=== PATIENT | female | born 1995 | race African-American/Black ===

== ENCOUNTER 2016-11-19 19:30 | Emergency (ER) | payer SELFPAY ==
[2016-11-19] MEDS ORDERED: SULFAMETHOXAZOLE/TRIMETHOPRIM 800-160 MG TABLET PO ONE (20:43)
--- NOTE | 2016-11-19 20:44 | ER Document Report ---
HPI - HPI Pain Level: 1 Context: Patient is a 21-year-old female presents emergency department complaining of visit within her nose that she is concerned is MRSA. 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 Otherwise she denies any fevers, chills. - REPRODUCTIVE Reproductive: DENIES: : - DERM Skin Color: Normal Past Medical History - Social History Smoking Status: Never Smoker Family History: Reviewed & Not Pertinent, DM, Hypertension Patient has suicidal ideation: No Patient has homicidal ideation: No Renal/ Medical History: Denies: Hx Peritoneal Dialysis - Immunizations Immunizations up to date: Yes Hx Diphtheria, Pertussis, Tetanus Vaccination: Yes - unknown Hx Pneumococcal Vaccination: 05/03/00 Vertical Provider Document - CONSTITUTIONAL Agree With Documented VS: Yes Exam Limitations: No Limitations General Appearance: WD/WN, No Apparent Distress - INFECTION CONTROL TRAVEL OUTSIDE OF THE [place] IN LAST 30 DAYS: No - HEENT HEENT: Atraumatic, Normocephalic, PERRLA. negative: Pharyngeal Exudate, Pharyngeal Tenderness, Pharyngeal Erythema, Tympanic Membrane Red, Tympanic Membrane Bulging Notes: pustulre noted within the left nare that is tender to palpation non draining - RESPIRATORY Respiratory: Breath Sounds Normal, No Respiratory Distress, Chest Non-Tender O2 Sat by Pulse Oximetry: 100 - CARDIOVASCULAR Cardiovascular: Regular Rate, Regular Rhythm, No Murmur - NEURO Level of Consciousness: Awake, Alert, Appropriate Motor/Sensory: No Motor Deficit, No Sensory Deficit - DERM Integumentary: Warm, Dry, No Rash Course - Re-evaluation Re-evalutation: 11/19/16 21:59 Patient is a 21 year old female who is HDS, NAD, and afebrile. Patient is requesting treatment for MRSA. Given her exposure history. Was sent home with Bactrim. - Vital Signs Vital signs: Temp Pulse Resp BP Pulse Ox 98.3 F 82 20 128/74 H 100 11/19/16 19:37 11/19/16 19:37 11/19/16 19:37 11/19/16 19:37 11/19/16 19:37 Discharge - Discharge Clinical Impression: Skin lesion Condition: Good Disposition: HOME, SELF-CARE Instructions: MRSA Cellulitis ([facility]) Prescriptions: Sulfamethoxazole/Trimethoprim [Bactrim Ds Tablet] 1 each PO BID #10 tablet
[2016-11-19 21:11] VITALS: BP 121/78
== END 2016-11-19 21:11 | disposition home or self-care (01) ==
LOC: ER 19:30
DX: L98.9 Disorder of the skin and subcutaneous tissue, unspecified (principal); Z20.818 Contact with and (suspected) exposure to other bacterial communicable diseases
CPT/HCPCS: 99283

== ENCOUNTER 2017-06-05 08:51 | Emergency (ER) | payer BC, MEDICAID ==
[2017-06-05] MEDS ORDERED: NORMAL SALINE 1000 ML 1,000 ML IV ONE (09:17)
[2017-06-05] MEDS ORDERED: ONDANSETRON HCL INJ/PF 4 MG/2 ML SDV IV ONE (09:17)
--- NOTE | 2017-06-05 09:58 | ER Document Report ---
ED GI/ - General Chief Complaint: Nausea/Vomiting/Diarrhea Stated Complaint: VOMITING Time Seen by Provider: 06/05/17 09:17 Information source: Patient Notes: 21-year-old female that presents today with the onset yesterday of nonbloody nonbilious vomiting and diarrhea 2 weeks with some "body aches" including her legs and lower back. She denies any dysuria or vaginal discharge. She states a mild nasal congestion without cough. She states some chills without overt fever. Patient does state some mild intermittent abdominal cramping with no focality. Patient denies any recent trips, travel, or antibiotics. TRAVEL OUTSIDE OF THE [place] IN LAST 30 DAYS: No - HPI Patient complains to provider of: Other - See above Onset: Other - See above Timing/Duration: Gradual Quality of pain: Achy Severity at maximum: Moderate Severity in ED: Mild Pain Level: 1 Context: Other - See above Location: Other - See above Vaginal bleeding (Compared to normal period): None Sexual history: Active Associated symptoms: Other - See above Exacerbated by: Denies Relieved by: Denies Similar symptoms previously: Yes Recently seen / treated by doctor: No - Related Data Allergies/Adverse Reactions: epinephrine [Epinephrine] Adverse Reaction (Verified 06/05/17 08:55) Syncope Past Medical History - General Information source: Patient - Social History Smoking Status: Unknown if Ever Smoked Cigarette use (# per day): No Chew tobacco use (# tins/day): No Smoking Education Provided: No Frequency of alcohol use: None Drug Abuse: None Family History: Reviewed & Not Pertinent, DM, Hypertension Renal/ Medical History: Denies: Hx Peritoneal Dialysis - Immunizations Immunizations up to date: Yes Hx Diphtheria, Pertussis, Tetanus Vaccination: Yes - unknown Hx Pneumococcal Vaccination: 05/03/00 Review of Systems - Review of Systems Constitutional: denies: Fever EENT: denies: Eye discharge, Nose discharge Cardiovascular: denies: Chest pain, Palpitations Respiratory: denies: Short of breath Gastrointestinal: Abdominal pain, Diarrhea, Vomiting Genitourinary: denies: Dysuria Musculoskeletal: denies: Leg swelling Skin: Other - no hives. denies: Rash Neurological/Psychological: Other - no slurred speech -: Yes All other systems reviewed and negative Physical Exam - Vital signs Vitals: Temp Pulse Resp BP Pulse Ox 98.3 F 92 16 119/80 99 02/03/18 09:08 06/05/17 09:08 06/05/17 09:08 06/05/17 09:08 06/05/17 09:08 Notes: Reviewed vital signs and nursing note as charted by RN. CONSTITUTIONAL: Alert and oriented and responds appropriately to questions. Well -appearing; well-nourished HEAD: Normocephalic; atraumatic EYES: PERRL; Sclerae non-icteric ENT: Normal nose; mild bilateral nasal rhinorrhea; moist mucous membranes; pharynx without lesions noted NECK: Supple without meningismus; non-tender CARD: Regular rate and rhythm; no murmurs RESP: Normal chest excursion without splinting or tachypnea; breath sounds clear and equal bilaterally ABD/GI: Normal bowel sounds; non-distended; soft, non-tender currently to deep palpation of all 4 quadrants of the abdomen BACK: The back appears normal and is non-tender to palpation; no CVA tenderness EXT: Normal ROM in all joints; non-tender to palpation; no edema SKIN: No acute lesions noted NEURO: Moves all extremities equally; Motor and sensory function intact PSYCH: The patient's mood and manner are appropriate. Grooming and personal hygiene are appropriate. Course - Re-evaluation Re-evalutation: 06/05/17 10:00 Given the history and physical examination, we will order basic labs, electrolytes, urinalysis and test, as well as an influenza test. I will provide fluids and Zofran. I do believe the risk of an acute intra- abdominal infection to be unlikely at this time given the abdominal exam as recorded above. We will reassess. 06/05/17 11:02 Labs as recorded. Influenza is negative. Patient still has no tenderness to repeat abdominal examination. Urinalysis shows no infection. is negative. Normal liver panel and lipase. White count is normal. Patient has not vomited here at this facility. She is currently playing on her phone. Given the above history and physical, laboratory work, vital signs stable, afebrile, repeat abdominal exams, I do not believe further imaging or laboratory testing is necessary at this moment. Patient will be discharged home with strict return precautions and follow-up with the primary physician. - Vital Signs Vital signs: Temp Pulse Resp BP Pulse Ox 98.3 F 92 16 119/80 99 06/05/17 09:08 06/05/17 09:08 06/05/17 09:08 06/05/17 09:08 06/05/17 09:08 - Laboratory Result Diagrams: 06/05/17 10:04 06/05/17 10:04 Laboratory results interpreted by me: 06/05/17 10:04 Urine Ascorbic Acid 40 H Discharge - Discharge Clinical Impression: Vomiting and diarrhea, Muscle cramps, Abdominal discomfort Condition: Good Disposition: HOME, SELF-CARE Additional Instructions: Come back immediately with any persistent vomiting or diarrhea, return or change in location of pain to the abdomen, or any other acute problems. Please follow-up with your primary care physician and please attempt to stay well- hydrated. Prescriptions: Ondansetron HCl [Zofran 4 mg Tablet] 1 - 2 tab PO Q4H PRN #10 tablet PRN Reason: Referrals: MIKE MACHADO MD [Primary Care Provider] - Follow up as needed
[2017-06-05 10:35] LABS: ABSOLUTE EOSINOPHILS # (AUTO) 0.1 10^3/uL (0.0-0.6); ABSOLUTE LYMPHOCYTES (AUTO) 1.3 10^3/uL (0.5-4.7); ABSOLUTE MONOCYTES (AUTO) 0.4 10^3/uL (0.1-1.4); ABSOLUTE NEUT (AUTO) 2.4 10^3/uL (1.7-8.2); BASOPHILS % (AUTO) 0.4 % (0-2); EOSINOPHILS % (AUTO) 1.8 % (0-6); HEMATOCRIT 41.1 % (36.0-47.0); HEMOGLOBIN 13.5 g/dL (12.0-15.5); LYMPHOCYTES % (AUTO) 31.2 % (13-45); MEAN CORPUSCULAR HEMOGLOBIN 28.1 pg (27.0-33.4); MEAN CORPUSCULAR HGB CONC 32.8 g/dL (32.0-36.0); MEAN CORPUSCULAR VOLUME 86 fl (80-97); MONOCYTES % (AUTO) 8.6 % (3-13); PLATELET COUNT 203 10^3/uL (150-450); RED BLOOD COUNT 4.81 10^6/uL (3.72-5.28); RED CELL DISTRIBUTION WIDTH 13.7 % (11.5-14.0); TOTAL CELLS COUNTED % (AUTO) 100 %; WHITE BLOOD COUNT 4.2 10^3/uL (4.0-10.5)
[2017-06-05 10:41] LABS: APPEARANCE,URINE CLEAR; BILIRUBIN,URINE NEGATIVE (NEGATIVE); COLOR,URINE YELLOW; GLUCOSE, URINE NEGATIVE (NEGATIVE); KETONES,URINE NEGATIVE (NEGATIVE); LEUKOCYTE ESTERASE,URINE NEGATIVE (NEGATIVE); NITRITE,URINE NEGATIVE (NEGATIVE); PROTEIN,URINE NEGATIVE (NEGATIVE); UROBILINOGEN,URINE NEGATIVE mg/dL (<2.0)
[2017-06-05 10:49] LABS: ALANINE AMINOTRANSFERASE 26 U/L (9-52); ALBUMIN 4.5 g/dL (3.5-5.0); ALKALINE PHOSPHATASE 66 U/L (38-126); ANION GAP 12 (5-19); ASPARTATE AMINO TRANSFERASE 19 U/L (14-36); BILIRUBIN,TOTAL 0.6 mg/dL (0.2-1.3); BLOOD UREA NITROGEN 8 mg/dL (7-20); CALCIUM 9.5 mg/dL (8.4-10.2); CARBON DIOXIDE 25 mmol/L (22-30); CHLORIDE 107 mmol/L (98-107); GLUCOSE 83 mg/dL (75-110); POTASSIUM 3.8 mmol/L (3.6-5.0); SODIUM 144.4 mmol/L (137-145); TOTAL PROTEIN 7.2 g/dL (6.3-8.2)
[2017-06-05 10:58] LABS: A TYPE INFLUENZA AG NEGATIVE (NEGATIVE); B INFLUENZA AG NEGATIVE (NEGATIVE)
[2017-06-05 11:19] VITALS: BP 114/68
== END 2017-06-05 11:19 | disposition home or self-care (01) ==
LOC: ER 08:51
DX: R11.2 Nausea with vomiting, unspecified (principal); R19.7 Diarrhea, unspecified; M79.1 Myalgia; R10.9 Unspecified abdominal pain; R25.2 Cramp and spasm
CPT/HCPCS: 99283; 96361; 96374; 36415; 85025; 81025; 80053; 81001; 87804; J2405; J7030

== ENCOUNTER 2017-06-16 20:27 | Emergency (ER) | payer BC ==
[2017-06-16 20:56] VITALS: BP 115/84
[2017-06-16] MEDS ORDERED: IBUPROFEN 600 MG TABLET PO ONE (22:47)
--- NOTE | 2017-06-16 22:49 | ER Document Report ---
ED General - General Chief Complaint: Cough Stated Complaint: STOMACH PAIN/COUGH Time Seen by Provider: 06/16/17 22:21 Mode of Arrival: Ambulatory Information source: Patient Notes: 21-year-old female presents with 1 week duration of cough body aches fevers and chills. Patient was fevers and chills actually resolved few days prior. She denies any productivity to the cough. Her son now has similar complaints TRAVEL OUTSIDE OF THE [place] IN LAST 30 DAYS: No - HPI Onset: Last week Onset/Duration: Persistent Quality of pain: Achy - Abdominal muscles hurt from coughing Severity: Mild Pain Level: 1 Associated symptoms: Body/muscle aches, Nonproductive cough, Fever Exacerbated by: Coughing Relieved by: Denies Similar symptoms previously: No Recently seen / treated by doctor: No - Related Data Allergies/Adverse Reactions: epinephrine [Epinephrine] Adverse Reaction (Verified 06/05/17 08:55) Syncope Past Medical History - Social History Smoking Status: Never Smoker Cigarette use (# per day): No Chew tobacco use (# tins/day): No Smoking Education Provided: No Family History: Reviewed & Not Pertinent, DM, Hypertension Patient has suicidal ideation: No Patient has homicidal ideation: No Renal/ Medical History: Denies: Hx Peritoneal Dialysis - Immunizations Immunizations up to date: Yes Hx Diphtheria, Pertussis, Tetanus Vaccination: Yes - unknown Hx Pneumococcal Vaccination: 05/03/00 Review of Systems - Review of Systems Notes: REVIEW OF SYSTEMS: CONSTITUTIONAL : Admits to previous fever EENT: Denies eye, ear, throat, or mouth pain or symptoms. Denies nasal or sinus congestion or discharge. Denies throat, tongue, or mouth swelling or difficulty swallowing. CARDIOVASCULAR: Denies chest pain. Denies palpitations or racing or irregular heart beat. Denies ankle edema. RESPIRATORY: Admits to nonproductive cough GASTROINTESTINAL: Denies abdominal pain or distention. Denies nausea, vomiting , or diarrhea. Denies blood in vomitus, stools, or per rectum. Denies black, tarry stools. Denies constipation. GENITOURINARY: Denies difficulty urinating, painful urination, burning, frequency, blood in urine, or discharge. FEMALE GENITOURINARY: Denies vaginal bleeding, heavy or abnormal periods, irregular periods. Denies vaginal discharge or odor. MUSCULOSKELETAL: Admits to abdominal pain SKIN: Denies rash, lesions or sores. HEMATOLOGIC : Denies easy bruising or bleeding. LYMPHATIC: Denies swollen, enlarged glands. NEUROLOGICAL: Denies confusion or altered mental status. Denies passing out or loss of consciousness. Denies dizziness or lightheadedness. Denies headache. Denies weakness or paralysis or loss of use of either side. Denies problems with gait or speech. Denies sensory loss, numbness, or tingling. Denies seizures. PSYCHIATRIC: Denies anxiety or stress. Denies depression, suicidal ideation, or homicidal ideation. ALL OTHER SYSTEMS REVIEWED AND NEGATIVE. PHYSICAL EXAMINATION: GENERAL: Well-appearing, well-nourished and in no acute distress. HEAD: Atraumatic, normocephalic. EYES: Pupils equal round and reactive to light, extraocular movements intact, conjunctiva are normal. ENT: Nares patent, oropharynx clear without exudates. Moist mucous membranes. NECK: Normal range of motion, supple without lymphadenopathy LUNGS: Breath sounds clear to auscultation bilaterally and equal. No wheezes rales or rhonchi. HEART: Regular rate and rhythm without murmurs ABDOMEN: Soft, nontender, nondistended abdomen. No guarding, no rebound. No masses appreciated. Female : deferred Musculoskeletal: Normal range of motion, no pitting or edema. No cyanosis. NEUROLOGICAL: Cranial nerves grossly intact. Normal speech, normal gait. Normal sensory, motor exams PSYCH: Normal mood, normal affect. SKIN: Warm, Dry, normal turgor, no rashes or lesions noted. Dictation was performed using [employer] voice recognition software Physical Exam - Vital signs Vitals: Temp Pulse Resp BP Pulse Ox 99.1 F 81 16 115/84 97 06/16/17 20:47 06/16/17 20:47 06/16/17 20:47 06/16/17 20:47 06/16/17 20:47 Course - Re-evaluation Re-evalutation: 06/16/17 22:48 Patient's examination is quite benign, she overall looks quite well, x-rays pending given the length of the cough but given that child has had similar complaints and believe this is more of a viral nature patient does not have any flulike presentation at this time 06/16/17 23:17 X-ray noted no acute abnormality patient looks well vital signs are stable she has no DVT or PE risk factors she is noted to have upper respiratory infection and is otherwise well-appearing After performing a Medical Screening Examination, I estimate there is LOW risk for ACUTE CORONARY SYNDROME, PULMONARY EMBOLI, RESPIRATORY FAILURE, SEPSIS OR MENINGITIS, thus I consider the discharge disposition reasonable. I have reevaluated this patient multiple times and no significant life threatening changes are noted. The patient and I have discussed the diagnosis and risks, and we agree with discharging home with close follow-up. We also discussed returning to the Emergency Department immediately if new or worsening symptoms occur. We have discussed the symptoms which are most concerning (e.g., changing or worsening pain, trouble swallowing or breathing, neck stiffness, fever) that necessitate immediate return. - Vital Signs Vital signs: Temp Pulse Resp BP Pulse Ox 99.1 F 81 16 115/84 97 06/16/17 20:47 06/16/17 20:47 06/16/17 20:47 06/16/17 20:47 06/16/17 20:47 - Diagnostic Test Radiology reviewed: Image reviewed, Reports reviewed - No acute abnormality Discharge - Discharge Clinical Impression: Respiratory infection, Abdominal wall pain Condition: Stable Disposition: HOME, SELF-CARE Instructions: Upper Respiratory Illness ([facility]) Additional Instructions: Follow up with your physician tomorrow for further care or return to the ED IMMEDIATELY if symptoms worsen or new concerns occur. If you cannot afford to follow up with your primary care physician a list of low cost clinics have been provided at the end of your discharge papers as well. Referrals: MIKE MACHADO MD [Primary Care Provider] - Follow up as needed
--- NOTE | 2017-06-16 23:22 | RADIOLOGY REPORT (SQ) ---
EXAM DESCRIPTION: CHEST PA/LAT CLINICAL HISTORY: 21 years, Female, cough COMPARISON: April 18, 2014 FINDINGS: Normal lung volume, clear parenchyma, normal cardiac silhouette, and intact bony thorax. IMPRESSION: No acute cardiopulmonary findings.
== END 2017-06-16 23:48 | disposition home or self-care (01) ==
LOC: ER 20:27
DX: J98.8 Other specified respiratory disorders (principal); R10.9 Unspecified abdominal pain; R05 Cough; M79.1 Myalgia
CPT/HCPCS: 71046; 99283

== ENCOUNTER 2018-06-03 09:55 | Emergency (ER) | payer BC, MEDICAID ==
--- NOTE | 2018-06-03 10:40 | ER Document Report ---
ED Medical Screen (RME) - General Chief Complaint: Nausea/Vomiting/Diarrhea Stated Complaint: VOMITING Time Seen by Provider: 06/03/18 10:38 Primary Care Provider: MIKE MACHADO MD [Primary Care Provider] - Follow up as needed Notes: Patient started having diarrhea Wednesday. She started vomiting this morning. Has vomited about 5 times. Has some pain in the mid epigastric region. No fevers. Not sure when her last menstrual cycle took place, but she is on control. No abdominal surgeries. On no prescription medications. TRAVEL OUTSIDE OF THE [place] IN LAST 30 DAYS: No - Related Data Allergies/Adverse Reactions: epinephrine [Epinephrine] Adverse Reaction (Verified 06/03/18 09:57) Syncope Past Medical History - Social History Chew tobacco use (# tins/day): No Frequency of alcohol use: None Drug Abuse: None Renal/ Medical History: Denies: Hx Peritoneal Dialysis - Immunizations Immunizations up to date: Yes Hx Diphtheria, Pertussis, Tetanus Vaccination: Yes - unknown Physical Exam - Vital signs Vitals: Temp Pulse Resp BP Pulse Ox 99.0 F 102 H 16 124/69 99 06/03/18 10:03 06/03/18 10:03 06/03/18 10:03 06/03/18 10:03 06/03/18 10:03 Course - Vital Signs Vital signs: Temp Pulse Resp BP Pulse Ox 99.0 F 102 H 16 124/69 99 06/03/18 10:03 06/03/18 10:03 06/03/18 10:03 06/03/18 10:03 06/03/18 10:03 Doctor's Discharge - Discharge Referrals: MIKE MACHADO MD [Primary Care Provider] - Follow up as needed
[2018-06-03] MEDS ORDERED: NORMAL SALINE 1000 ML 1,000 ML IV ONE (10:41)
[2018-06-03] MEDS ORDERED: ONDANSETRON HCL INJ/PF 4 MG/2 ML SDV IV ONE (10:42)
[2018-06-03 11:23] LABS: ABSOLUTE LYMPHOCYTES (AUTO) 0.6 10^3/uL (0.5-4.7); ABSOLUTE MONOCYTES (AUTO) 0.3 10^3/uL (0.1-1.4); ABSOLUTE NEUT (AUTO) 9.2 10^3/uL (1.7-8.2); BASOPHILS % (AUTO) 0.1 % (0-2); EOSINOPHILS % (AUTO) 0.4 % (0-6); HEMATOCRIT 44.6 % (36.0-47.0); HEMOGLOBIN 14.9 g/dL (12.0-15.5); LYMPHOCYTES % (AUTO) 6.2 % (13-45); MEAN CORPUSCULAR HEMOGLOBIN 28.9 pg (27.0-33.4); MEAN CORPUSCULAR HGB CONC 33.4 g/dL (32.0-36.0); MEAN CORPUSCULAR VOLUME 87 fl (80-97); MONOCYTES % (AUTO) 2.7 % (3-13); PLATELET COUNT 199 10^3/uL (150-450); RED BLOOD COUNT 5.14 10^6/uL (3.72-5.28); RED CELL DISTRIBUTION WIDTH 13.3 % (11.5-14.0); SEGMENTED NEUTROPHILS % (AUTO) 90.6 % (42-78); TOTAL CELLS COUNTED % (AUTO) 100 %; WHITE BLOOD COUNT 10.2 10^3/uL (4.0-10.5)
[2018-06-03 11:37] LABS: ALANINE AMINOTRANSFERASE 16 U/L (9-52); ALBUMIN 5.3 g/dL (3.5-5.0); ALKALINE PHOSPHATASE 79 U/L (38-126); ANION GAP 11 (5-19); ASPARTATE AMINO TRANSFERASE 42 U/L (14-36); BILIRUBIN,DIRECT 0.4 mg/dL (0.0-0.4); BILIRUBIN,TOTAL 0.9 mg/dL (0.2-1.3); BLOOD UREA NITROGEN 12 mg/dL (7-20); CALCIUM 9.5 mg/dL (8.4-10.2); CARBON DIOXIDE 27 mmol/L (22-30); CHLORIDE 106 mmol/L (98-107); GLUCOSE 99 mg/dL (75-110); LIPASE 335.2 U/L (23-300); POTASSIUM 4.3 mmol/L (3.6-5.0); SODIUM 144.1 mmol/L (137-145); TOTAL PROTEIN 8.9 g/dL (6.3-8.2)
[2018-06-03 11:52] LABS: APPEARANCE,URINE CLOUDY; BILIRUBIN,URINE NEGATIVE (NEGATIVE); COLOR,URINE YELLOW; GLUCOSE, URINE NEGATIVE (NEGATIVE); KETONES,URINE NEGATIVE (NEGATIVE); LEUKOCYTE ESTERASE,URINE NEGATIVE (NEGATIVE); NITRITE,URINE NEGATIVE (NEGATIVE); PROTEIN,URINE NEGATIVE (NEGATIVE); URINE SPECIFIC GRAVITY 1.024; UROBILINOGEN,URINE NEGATIVE mg/dL (<2.0)
--- NOTE | 2018-06-03 11:54 | ER Document Report ---
ED GI/ - General Chief Complaint: Nausea/Vomiting/Diarrhea Stated Complaint: VOMITING Time Seen by Provider: 06/03/18 10:38 Primary Care Provider: MIKE MACHADO MD [ACTIVE STAFF] - Follow up as needed Information source: Patient Notes: 22-year-old female with no past medical history presents today with 2 days of some intermittent nausea, vomiting, and diarrhea. No blood in the vomit or diarrhea. Son has similar symptomatology. No fevers. Patient denies to me any abdominal pain or dysuria. Patient is on control. She is unsure when her last menstrual period took place. No lower pelvic pain or vaginal discharge. No recent trips, travel, or antibiotic usage. TRAVEL OUTSIDE OF THE [place] IN LAST 30 DAYS: No - HPI Patient complains to provider of: Other - See above Onset: Other - See above Quality of pain: Other - See above Severity at maximum: Moderate Severity in ED: Mild Pain Level: Denies Location: Other - See above Vaginal bleeding (Compared to normal period): None Associated symptoms: Other - See above Exacerbated by: Denies Relieved by: Denies Similar symptoms previously: Yes Recently seen / treated by doctor: No - Related Data Allergies/Adverse Reactions: epinephrine [Epinephrine] Adverse Reaction (Verified 06/03/18 09:57) Syncope Past Medical History - Social History Smoking Status: Never Smoker Chew tobacco use (# tins/day): No Frequency of alcohol use: None Drug Abuse: None Family History: Reviewed & Not Pertinent, DM, Hypertension Patient has suicidal ideation: No Patient has homicidal ideation: No Renal/ Medical History: Denies: Hx Peritoneal Dialysis - Immunizations Immunizations up to date: Yes Hx Diphtheria, Pertussis, Tetanus Vaccination: Yes - unknown Hx Pneumococcal Vaccination: 05/03/00 Review of Systems - Review of Systems Constitutional: denies: Fever EENT: denies: Eye discharge, Nose discharge Cardiovascular: denies: Chest pain, Palpitations Respiratory: denies: Short of breath Gastrointestinal: Diarrhea, Vomiting Genitourinary: denies: Dysuria Musculoskeletal: denies: Leg swelling Skin: Other - no hives. denies: Rash Neurological/Psychological: Other - no slurred speech -: Yes All other systems reviewed and negative Physical Exam - Vital signs Vitals: Temp Pulse Resp BP Pulse Ox 99.0 F 102 H 16 124/69 99 06/03/18 10:06/03/18 10:06/03/18 10:06/03/18 10:06/03/18 10:03 Notes: Reviewed vital signs and nursing note as charted by RN. CONSTITUTIONAL: Alert and oriented and responds appropriately to questions. Well-appearing; well-nourished HEAD: Normocephalic; atraumatic EYES: Sclerae non-icteric ENT: Normal nose; no rhinorrhea; moist mucous membranes; pharynx without lesions noted NECK: Supple without meningismus; non-tender; no cervical lymphadenopathy, no masses CARD: Regular rate and rhythm; no murmurs; symmetric distal pulses RESP: Normal chest excursion without splinting or tachypnea; breath sounds clear and equal bilaterally; no wheezes, no rhonchi, no rales ABD/GI: Normal bowel sounds; non-distended; soft, non-tender to deep palpation of all 4 quadrants of the abdomen; no palpable organomegaly or masses BACK: The back appears normal and is non-tender to palpation EXT: Normal ROM in all joints; non-tender to palpation; no edema SKIN: No acute lesions noted NEURO: CN 2-12 intact; 5/5 bilateral upper and lower extremity strength with sensation intact to light touch PSYCH: The patient's mood and manner are appropriate. Grooming and personal hygiene are appropriate. Course - Re-evaluation Re-evalutation: 06/03/18 11:53 Given the above history and physical examination I have a very low pretest probability for acute intra-abdominal pathology. Vital signs are stable. Son with similar symptomatology. If the labs are unremarkable and the patient is able to tolerate fluids, patient will be discharged home with strict return precautions and follow-up with the primary care physician with a prescription for Zofran. 06/03/18 12:38 Labs as recorded. Lipase is slightly elevated. No tenderness again on repeat examination of all 4 quadrants of the abdomen. Patient has passed the p.o. challenge. Patient will be discharged home with strict return precautions and follow-up with the primary care provider. - Vital Signs Vital signs: Temp Pulse Resp BP Pulse Ox 98.4 F 101 H 16 109/65 99 06/03/18 12:28 06/03/18 12:28 06/03/18 10:03 06/03/18 12:28 06/03/18 12:28 - Laboratory Result Diagrams: 06/03/18 11:06 06/03/18 11:06 Laboratory results interpreted by me: 06/03/18 06/03/18 11:06 11:06 Seg Neutrophils % 90.6 H Lymphocytes % 6.2 L Monocytes % 2.7 L Absolute Neutrophils 9.2 H AST 42 H Total Protein 8.9 H Albumin 5.3 H Lipase 335.2 H Discharge - Discharge Clinical Impression: Nausea vomiting and diarrhea Condition: Good Disposition: HOME, SELF-CARE Additional Instructions: Come back immediately for any pain, fevers, any blood in the vomit or diarrhea, lightheadedness or dizziness, increased vomiting or diarrhea, or any other acute problems. Please follow-up with the primary care physician as we have discussed. Prescriptions: Ondansetron [Zofran Odt 4 mg Tablet] 1 tab PO Q6H #15 [email or web address] Referrals: MIKE MACHADO MD [ACTIVE STAFF] - Follow up as needed
[2018-06-03 12:32] VITALS: BP 109/65
== END 2018-06-03 12:32 | disposition home or self-care (01) ==
LOC: ER 09:55
DX: R11.2 Nausea with vomiting, unspecified (principal); R19.7 Diarrhea, unspecified
CPT/HCPCS: 99284; 96361; 96374; 36415; 83690; 84703; 85025; 80053; 81001; J2405; J7030

== ENCOUNTER 2018-09-19 07:15 | Emergency (ER) | payer BC, MEDICAID ==
[2018-09-19 08:09] LABS: APPEARANCE,URINE CLOUDY; BILIRUBIN,URINE NEGATIVE (NEGATIVE); COLOR,URINE YELLOW; GLUCOSE, URINE NEGATIVE (NEGATIVE); KETONES,URINE TRACE mg/dL (NEGATIVE); LEUKOCYTE ESTERASE,URINE NEGATIVE (NEGATIVE); NITRITE,URINE NEGATIVE (NEGATIVE); PROTEIN,URINE NEGATIVE (NEGATIVE); URINE SPECIFIC GRAVITY 1.027
[2018-09-19] MEDS ORDERED: NORMAL SALINE 1000 ML 1,000 ML IV ONE (08:57)
[2018-09-19 08:58] LABS: ABSOLUTE EOSINOPHILS # (AUTO) 0.1 10^3/uL (0.0-0.6); ABSOLUTE LYMPHOCYTES (AUTO) 1.5 10^3/uL (0.5-4.7); ABSOLUTE MONOCYTES (AUTO) 0.2 10^3/uL (0.1-1.4); ABSOLUTE NEUT (AUTO) 2.1 10^3/uL (1.7-8.2); BASOPHILS % (AUTO) 0.9 % (0-2); EOSINOPHILS % (AUTO) 2.2 % (0-6); HEMATOCRIT 39.6 % (36.0-47.0); HEMOGLOBIN 12.9 g/dL (12.0-15.5); LYMPHOCYTES % (AUTO) 38.2 % (13-45); MEAN CORPUSCULAR HEMOGLOBIN 28.1 pg (27.0-33.4); MEAN CORPUSCULAR HGB CONC 32.7 g/dL (32.0-36.0); MEAN CORPUSCULAR VOLUME 86 fl (80-97); MONOCYTES % (AUTO) 5.8 % (3-13); PLATELET COUNT 231 10^3/uL (150-450); RED BLOOD COUNT 4.61 10^6/uL (3.72-5.28); SEGMENTED NEUTROPHILS % (AUTO) 52.9 % (42-78); TOTAL CELLS COUNTED % (AUTO) 100 %
[2018-09-19] MEDS ORDERED: ONDANSETRON HCL INJ/PF 4 MG/2 ML SDV IV ONE (08:58)
--- NOTE | 2018-09-19 09:02 | ER Document Report ---
ED General - General Chief Complaint: Nausea/Vomiting/Diarrhea Stated Complaint: VOMITING Time Seen by Provider: 09/19/18 08:01 Notes: 22-year-old healthy female presents to the emergency department with chief complaint of vomiting, inability to hold any food down, nausea, and diarrhea. She states she has had nausea for 2 days and started having vomiting and diarrhea since today. She has had one episode of each. She has abdominal pain located in the left upper quadrant that is crampy in nature. She denies any fevers, chills, weakness, dizziness or lightheadedness, headache. Denies any urinary symptom TRAVEL OUTSIDE OF THE [place] IN LAST 30 DAYS: No - Related Data Allergies/Adverse Reactions: epinephrine [Epinephrine] Adverse Reaction (Verified 06/03/18 09:57) Syncope Past Medical History - Social History Smoking Status: Never Smoker Family History: Reviewed & Not Pertinent, DM, Hypertension Renal/ Medical History: Denies: Hx Peritoneal Dialysis - Immunizations Immunizations up to date: Yes Hx Diphtheria, Pertussis, Tetanus Vaccination: Yes - unknown Hx Pneumococcal Vaccination: 05/03/00 Review of Systems - Review of Systems Constitutional: See HPI EENT: No symptoms reported Cardiovascular: See HPI Respiratory: See HPI Gastrointestinal: See HPI Genitourinary: See HPI Female Genitourinary: No symptoms reported Musculoskeletal: No symptoms reported Skin: No symptoms reported Hematologic/Lymphatic: No symptoms reported Neurological/Psychological: See HPI Physical Exam - Vital signs Vitals: Temp Pulse Resp BP Pulse Ox 98.2 F 83 16 104/61 99 09/19/18 07:22 09/19/18 07:22 09/19/18 07:22 09/19/18 07:22 09/19/18 07:22 - Notes Notes: PHYSICAL EXAMINATION: Reviewed vital signs and charting by RN GENERAL: Well-appearing, well-nourished and in no acute distress. HEAD: Atraumatic, normocephalic. EYES: Pupils are 3 mm and equal/round, extraocular movements intact, sclera anicteric, conjunctiva are normal. ENT: Nares patent bilaterally, oropharynx clear without exudates or palatal petechia. Moist mucous membranes. No tonsil hypertrophy. NECK: Normal range of motion, supple without lymphadenopathy. LUNGS: Breath sounds present, equal, and clear to auscultation bilaterally. No wheezes, rales, or rhonchi. HEART: Regular rate and rhythm without murmurs, rubs, or gallops. 2+ peripheral pulses. Normal capillary refill. ABDOMEN: Soft, left upper quadrant tenderness to palpation, nondistended. Normoactive bowel sounds. No guarding, no rebound. No masses appreciated. BACK: Normal contour, no midline tenderness. Rectal exam deferred. PELVC: Deferred. EXTREMITIES: Normal range of motion, no pitting or edema. No cyanosis. NEUROLOGICAL: No focal neurological deficits. Moves all extremities spontaneously and on command. SKIN: Warm, dry, normal turgor, no rashes or lesions noted. Course - Re-evaluation Re-evalutation: 09/19/18 09:01 Well-appearing with moist mucous membranes. We will give her IV fluids and Zofr an. Will then fluid challenge her. I have a very low pretest probability for any serious intra-abdominal pathology. 09/19/18 10:16 Patient states she feels better after IV Zofran and IV fluids. She is able to tolerate p.o. fluids. Because she only had one episode of vomiting and her labs are all within normal limits at this time and she is stable for discharge. - Vital Signs Vital signs: Temp Pulse Resp BP Pulse Ox 98.2 F 83 16 104/61 99 09/19/18 07:22 09/19/18 07:22 09/19/18 07:22 09/19/18 07:22 09/19/18 07:22 - Laboratory Result Diagrams: 09/19/18 07:56 09/19/18 07:56 Laboratory results interpreted by me: 09/19/18 07:40 Urine Ketones TRACE H Urine Urobilinogen 2.0 H Urine Ascorbic Acid 40 H Discharge - Discharge Clinical Impression: Nausea & vomiting Qualifiers: Vomiting type: unspecified Vomiting Intractability: non-intractable Qualified Code(s): R11.2 - Nausea with vomiting, unspecified Diarrhea Qualifiers: Diarrhea type: unspecified type Qualified Code(s): R19.7 - Diarrhea, unspecified Condition: Good Disposition: HOME, SELF-CARE Instructions: Vomiting ([facility]) Additional Instructions: You have been seen in the Emergency Department (ED) today for nausea and vomiting. Your work up today has not shown a clear cause for your symptoms. You have been prescribed Zofran; please use as prescribed as needed for your nausea. Follow up with your doctor as soon as possible regarding today's emergent visit and your symptoms of nausea. Return to the Emergency Department (ED) if you develop abdominal pain, bloody vomiting, bloody diarrhea, if you are unable to tolerate fluids due to vomiting, or if you develop other symptoms that concern you. Forms: Return to Work, Treatment of Relative/Child
[2018-09-19 09:14] LABS: ALANINE AMINOTRANSFERASE 24 U/L (9-52); ALBUMIN 3.8 g/dL (3.5-5.0); ALKALINE PHOSPHATASE 64 U/L (38-126); ANION GAP 8 (5-19); ASPARTATE AMINO TRANSFERASE 19 U/L (14-36); BILIRUBIN,DIRECT 0.2 mg/dL (0.0-0.4); BILIRUBIN,TOTAL 0.4 mg/dL (0.2-1.3); BLOOD UREA NITROGEN 8 mg/dL (7-20); CALCIUM 9.6 mg/dL (8.4-10.2); CARBON DIOXIDE 25 mmol/L (22-30); CHLORIDE 106 mmol/L (98-107); GLUCOSE 93 mg/dL (75-110); LIPASE 88.1 U/L (23-300); POTASSIUM 4.1 mmol/L (3.6-5.0); SODIUM 139.2 mmol/L (137-145); TOTAL PROTEIN 7.1 g/dL (6.3-8.2)
[2018-09-19] MEDS ORDERED: ONDANSETRON ODT 4 MG TAB (6 TAB/ER DISP) PO PRN (09:22)
[2018-09-19 10:50] VITALS: BP 99/56
== END 2018-09-19 10:55 | disposition home or self-care (01) ==
LOC: ER 07:15
DX: R11.2 Nausea with vomiting, unspecified (principal); R19.7 Diarrhea, unspecified; R10.12 Left upper quadrant pain
CPT/HCPCS: 99284; 96361; 96374; 36415; 83690; 85025; 81025; 80053; 81001; J2405; J7030

== ENCOUNTER 2019-01-13 07:52 | Emergency (ER) | payer BC ==
[2019-01-13] MEDS ORDERED: NORMAL SALINE 1000 ML 1,000 ML IV ONE (08:16)
[2019-01-13] MEDS ORDERED: ONDANSETRON HCL INJ/PF 4 MG/2 ML SDV IV ONE (08:16)
--- NOTE | 2019-01-13 08:21 | ER Document Report ---
ED General - General Chief Complaint: Dizziness Stated Complaint: NAUSEA Time Seen by Provider: 01/13/19 08:11 Notes: Patient is a 23-year-old female presents to the emergency department with a chief complaint of nausea and weakness. Patient states last night she was bending down to pick an object off the floor when she got dizzy. Patient states that at that time that she did go to bed and woke up this morning with the same symptoms. Patient states she feels generally weak all over and dehydrated. Patient states she has had a decreased oral intake but denies a specific reason such as vomiting, diarrhea or abdominal pain. Patient reports nausea without vomiting. Patient reports her last bowel movement was 2 days ago. Patient den ies urinary symptoms. Patient denies fever. TRAVEL OUTSIDE OF THE [place] IN LAST 30 DAYS: No - Related Data Allergies/Adverse Reactions: epinephrine [Epinephrine] Adverse Reaction (Verified 01/13/19 07:54) Syncope Past Medical History - General Information source: Patient - Social History Smoking Status: Unknown if Ever Smoked Lives with: Spouse/Significant other Family History: Reviewed & Not Pertinent, DM, Hypertension - Past Medical History Cardiac Medical History: Reports: None Pulmonary Medical History: Reports: None EENT Medical History: Reports: None Neurological Medical History: Reports: None Endocrine Medical History: Reports: None Renal/ Medical History: Reports: None. Denies: Hx Peritoneal Dialysis Malignancy Medical History: Reports: None GI Medical History: Reports: None Musculoskeletal Medical History: Reports None Skin Medical History: Reports None Psychiatric Medical History: Reports: None Traumatic Medical History: Reports: None Infectious Medical History: Reports: None Past Surgical History: Reports: None - Immunizations Immunizations up to date: Yes Hx Diphtheria, Pertussis, Tetanus Vaccination: Yes - unknown Hx Pneumococcal Vaccination: 05/03/00 Review of Systems - Review of Systems Constitutional: See HPI EENT: No symptoms reported Cardiovascular: No symptoms reported Respiratory: No symptoms reported Gastrointestinal: See HPI Genitourinary: No symptoms reported Female Genitourinary: No symptoms reported Musculoskeletal: No symptoms reported Skin: No symptoms reported Hematologic/Lymphatic: No symptoms reported Neurological/Psychological: No symptoms reported Physical Exam - Vital signs Vitals: Temp Pulse Resp BP Pulse Ox 98.3 F 74 16 122/78 98 01/13/19 08:03 01/13/19 08:03 01/13/19 08:03 01/13/19 08:03 01/13/19 08:03 Interpretation: Normal - Notes Notes: GENERAL: Well-appearing, well-nourished and in no acute distress. HEAD: Atraumatic, normocephalic. EYES: Pupils equal round and reactive to light, extraocular movements intact, sclera anicteric, conjunctiva are normal. ENT: Nares patent, oropharynx clear without exudates. Dry mucous membranes. NECK: Normal range of motion, supple without lymphadenopathy or JVD. LUNGS: Breath sounds clear to auscultation bilaterally and equal. No wheezes rales or rhonchi. HEART: Regular rate and rhythm without murmurs, rubs or gallops. ABDOMEN: Soft, nontender, normoactive bowel sounds. No guarding, no rebound. No masses appreciated. BACK: No cervical, thoracic, lumbar midline tenderness. No saddle anesthesia, normal distal neurovascular exam. GENITOURINARY: Deferred. EXTREMITIES: Normal range of motion, no pitting or edema. No clubbing or cyanosis. NEUROLOGICAL: Cranial nerves II through XII grossly intact. Normal speech, normal gait. PSYCH: Normal mood, normal affect. SKIN: Warm, Dry, normal turgor, no rashes or lesions noted. Course - Re-evaluation Re-evalutation: 01/13/19 08:20 On initial assessment patient sitting upright on stretcher. Patient's mucous membranes do appear slightly dry. Will obtain basic labs, antiemetic and IV fluids. Patient is not hypotensive, tachycardic or febrile at this time. Patient is nontoxic-appearing. 01/13/19 09:30 Upon reevaluation patient is resting comfortably on the stretcher. Patient has provided a urine sample which will be sent to the lab for analysis. Patient does complain of a mild headache and has some nausea but states that she does feel slightly better. Will give Tylenol as well as Reglan for her nausea. Patient does have a half a liter of fluids but will continue to infuse. 01/13/19 10:33 After fluids and Tylenol patient reports that she feels much better. Patient states her headache is now gone. Patient's lab work was unremarkable, hCG was negative as well as a negative urinalysis without signs of infection. We will send the patient home with antinausea medication. Patient instructed to return if symptoms worsen or persist. - Vital Signs Vital signs: Temp Pulse Resp BP Pulse Ox 98.3 F 74 16 122/78 98 01/13/19 08:03 01/13/19 08:03 01/13/19 08:03 01/13/19 08:03 01/13/19 08:03 - Laboratory Result Diagrams: 01/13/19 08:50 01/13/19 08:50 Laboratory results interpreted by me: 01/13/19 08:50 WBC 3.5 L Laboratory 01/13/19 01/13/19 01/13/19 08:50 08:50 09:50 WBC 3.5 L RBC 4.56 Hgb 12.6 Hct 39.1 MCV 86 MCH 27.7 MCHC 32.3 RDW 13.5 Plt Count 227 Lymph % (Auto) 36.8 [place] % (Auto) 6.7 Eos % (Auto) 3.7 Baso % (Auto) 1.2 Absolute Neuts (auto) 1.8 Absolute Lymphs (auto) 1.3 Absolute Monos (auto) 0.2 Absolute Eos (auto) 0.1 Absolute Basos (auto) 0.0 Seg Neutrophils % 51.6 Sodium 139.1 Potassium 4.0 Chloride 106 Carbon Dioxide 28 Anion Gap 5 BUN 8 Creatinine 0.81 Est GFR ( Amer) > 60 Est GFR (MDRD) Non-Af > 60 Glucose 93 Calcium 9.2 Total Bilirubin 0.3 Direct Bilirubin 0.0 Neonat Total Bilirubin Not Reportable Neonat Direct Bilirubin Not Reportable Neonat Indirect Bili Not Reportable AST 19 ALT 11 Alkaline Phosphatase 57 Total Protein 6.7 Albumin 3.7 Urine Color YELLOW Urine Appearance CLEAR Urine pH 7.0 Ur Specific [place] 1.024 Urine Protein NEGATIVE Urine Glucose (UA) NEGATIVE Urine Ketones NEGATIVE Urine Blood NEGATIVE Urine Nitrite NEGATIVE Urine Bilirubin NEGATIVE Urine Urobilinogen NEGATIVE Ur Leukocyte Esterase NEGATIVE Urine RBC NONE SEEN Urine WBC NONE SEEN Ur Squamous Epith Cells RARE Amorphous Sediment TRACE Urine Bacteria 1+ Urine Ascorbic Acid NEGATIVE Urine HCG, Qual NEGATIVE Discharge - Discharge Clinical Impression: Nausea, Dizziness Headache Qualifiers: Headache type: unspecified Headache chronicity pattern: acute headache Intractability: not intractable Qualified Code(s): R51 - Headache Condition: Stable Disposition: HOME, SELF-CARE Instructions: Antinausea Medication ([facility]), Dizziness ([facility]) Additional Instructions: Today you were seen in the emergency department for possible dehydration and nausea. After receiving a liter of IV hydration and antinausea medicine you do report feeling much better. Your blood work and urinalysis are reassuring. I am giving you a prescription for antinausea medication in which she will take as prescribed and only as needed. Please rest for the rest of the day and make sure you are staying hydrated. Please return to the emergency department if your symptoms worsen. Forms: Return to Work
[2019-01-13 09:01] LABS: ABSOLUTE EOSINOPHILS # (AUTO) 0.1 10^3/uL (0.0-0.6); ABSOLUTE LYMPHOCYTES (AUTO) 1.3 10^3/uL (0.5-4.7); ABSOLUTE MONOCYTES (AUTO) 0.2 10^3/uL (0.1-1.4); ABSOLUTE NEUT (AUTO) 1.8 10^3/uL (1.7-8.2); BASOPHILS % (AUTO) 1.2 % (0-2); EOSINOPHILS % (AUTO) 3.7 % (0-6); HEMATOCRIT 39.1 % (36.0-47.0); HEMOGLOBIN 12.6 g/dL (12.0-15.5); LYMPHOCYTES % (AUTO) 36.8 % (13-45); MEAN CORPUSCULAR HEMOGLOBIN 27.7 pg (27.0-33.4); MEAN CORPUSCULAR HGB CONC 32.3 g/dL (32.0-36.0); MEAN CORPUSCULAR VOLUME 86 fl (80-97); MONOCYTES % (AUTO) 6.7 % (3-13); PLATELET COUNT 227 10^3/uL (150-450); RED BLOOD COUNT 4.56 10^6/uL (3.72-5.28); RED CELL DISTRIBUTION WIDTH 13.5 % (11.5-14.0); SEGMENTED NEUTROPHILS % (AUTO) 51.6 % (42-78); TOTAL CELLS COUNTED % (AUTO) 100 %; WHITE BLOOD COUNT 3.5 10^3/uL (4.0-10.5)
[2019-01-13 09:19] LABS: ALBUMIN 3.7 g/dL (3.5-5.0); ALKALINE PHOSPHATASE 57 U/L (38-126); ANION GAP 5 (5-19); ASPARTATE AMINO TRANSFERASE 19 U/L (14-36); BILIRUBIN,TOTAL 0.3 mg/dL (0.2-1.3); BLOOD UREA NITROGEN 8 mg/dL (7-20); CALCIUM 9.2 mg/dL (8.4-10.2); CARBON DIOXIDE 28 mmol/L (22-30); CHLORIDE 106 mmol/L (98-107); GLUCOSE 93 mg/dL (75-110); TOTAL PROTEIN 6.7 g/dL (6.3-8.2)
[2019-01-13] MEDS ORDERED: METOCLOPRAMIDE HCL INJ/PF 10 MG/2 ML SDV IV ONE (09:29)
[2019-01-13] MEDS ORDERED: ACETAMINOPHEN 325 MG TABLET PO ONE (09:30)
[2019-01-13 10:21] LABS: APPEARANCE,URINE CLEAR; BILIRUBIN,URINE NEGATIVE (NEGATIVE); COLOR,URINE YELLOW; GLUCOSE, URINE NEGATIVE (NEGATIVE); KETONES,URINE NEGATIVE (NEGATIVE); LEUKOCYTE ESTERASE,URINE NEGATIVE (NEGATIVE); NITRITE,URINE NEGATIVE (NEGATIVE); PROTEIN,URINE NEGATIVE (NEGATIVE); URINE SPECIFIC GRAVITY 1.024; UROBILINOGEN,URINE NEGATIVE mg/dL (<2.0)
[2019-01-13 10:25] LABS: ADD MANUAL MICROSCOPIC YES
[2019-01-13 10:31] LABS: AMORPHOUS SEDIMENT,UR TRACE; BACTERIA,URINE 1+ /HPF; RBC,URINE NONE SEEN /HPF; WBC,URINE NONE SEEN /HPF
[2019-01-13] MEDS ORDERED: ONDANSETRON ODT 4 MG TAB (6 TAB/ER DISP) PO PRN (10:52)
[2019-01-13 11:27] VITALS: BP 103/48
== END 2019-01-13 11:30 | disposition home or self-care (01) ==
LOC: ER 07:52
DX: R11.0 Nausea (principal); R51 Headache; R42 Dizziness and giddiness; R53.1 Weakness
CPT/HCPCS: 36415; 85025; 81025; 80053; 81001; J2765; J2405; J7030; 96361; 96374; 96375; 99284

== ENCOUNTER → 2019-06-26 | Outpatient (CLI) | payer BC, MEDICAID ==
--- NOTE | 2019-06-26 11:21 | RADIOLOGY REPORT (SQ) ---
EXAM DESCRIPTION: U/S ABDOMEN LIMITED W/O DOP COMPLETED DATE/TIME: 06/26/2019 8:37 am REASON FOR STUDY: NAUSEA R11.0 NAUSEA COMPARISON: None. TECHNIQUE: Dynamic and static grayscale images acquired of the abdomen and recorded on PACS. Additio nal selected color Doppler and spectral images recorded. LIMITATIONS: None. FINDINGS: PANCREAS: The visualized portions of the pancreas appear normal. LIVER: Normal contour and echotexture. LIVER VASCULATURE: Hepatopetal directional flow within the portal veins. GALLBLADDER: The gallbladder wall measures 2 mm in thickness. There is no cholelithiasis, sludge or pericholecystic fluid. ULTRASOUND-DETECTED MCCORMACK'S SIGN: Negative. INTRAHEPATIC DUCTS AND COMMON DUCT: The common bile duct measures 4 mm in diameter. The intrahepatic bile ducts are normal in caliber. INFERIOR VENA CAVA: Patent. AORTA: No aneurysm. RIGHT KIDNEY: The right kidney measures 10.2 cm in length. There is no hydronephrosis. PERITONEAL AND RIGHT PLEURAL SPACE: No ascites or effusions. OTHER: No other findings. IMPRESSION: No abnormality of the right upper quadrant. TECHNICAL DOCUMENTATION: JOB ID: [id number] 2010 [employer]- All Rights Reserved Reading location - IP/workstation name: [email or web address]
== END ==
LOC: RAD 08:08
PROVIDERS: ATTEND Physician Assistant
DX: R11.0 Nausea (principal)
CPT/HCPCS: 76705

== ENCOUNTER 2019-08-02 22:49 | Emergency (ER) | payer BC ==
[2019-08-02] MEDS ORDERED: NORMAL SALINE 1000 ML 1,000 ML IV ONE (23:36)
--- NOTE | 2019-08-02 23:41 | ER Document Report ---
ED General - General Chief Complaint: Doesn't Feel Right Stated Complaint: MARIJUANA USE/FEELS WEIRD Time Seen by Provider: 08/02/19 23:03 Primary Care Provider: RAJI WOODS PA-C [Primary Care Provider] - Follow up as needed Notes: Patient is a 23-year-old female that comes emergency department for chief compla int of an episode when she got out of the shower where she felt very lightheaded, got nauseated, felt very weak, and thought she was going to pass out. She denies chest pain, specific dizziness, headache, difficulty breathing, fever/chills, abdominal pain. She states she feels improved now just weak. She does admit that prior to getting into the shower she was smoking marijuana and she does not usually except for yesterday when she had no symptoms. She did use slightly more today. She denies recreational drugs otherwise, alcohol, tobacco use. She denies any daily medications. She denies any surgeries. She is on oral contraceptives. TRAVEL OUTSIDE OF THE [place] IN LAST 30 DAYS: No - Related Data Allergies/Adverse Reactions: epinephrine [Epinephrine] Adverse Reaction (Verified 01/13/19 07:54) Syncope Home Medications: zofran Past Medical History - General Information source: Patient - Social History Smoking Status: Current Some Day Smoker Chew tobacco use (# tins/day): No Frequency of alcohol use: Rare Drug Abuse: Marijuana Lives with: Family Family History: Reviewed & Not Pertinent, DM, Hypertension Patient has suicidal ideation: No Patient has homicidal ideation: No - Medical History Medical History: Negative Renal/ Medical History: Denies: Hx Peritoneal Dialysis Surgical Hx: Negative - Immunizations Immunizations up to date: Yes Hx Diphtheria, Pertussis, Tetanus Vaccination: Yes - unknown Hx Pneumococcal Vaccination: 05/03/00 Review of Systems - Review of Systems Constitutional: See HPI EENT: No symptoms reported Cardiovascular: See HPI Respiratory: No symptoms reported Gastrointestinal: See HPI Genitourinary: No symptoms reported Female Genitourinary: No symptoms reported Musculoskeletal: No symptoms reported Skin: No symptoms reported Hematologic/Lymphatic: No symptoms reported Neurological/Psychological: See HPI Physical Exam - Vital signs Vitals: Temp Pulse Resp BP Pulse Ox 97.4 F 80 18 118/82 100 08/02/19 23:09 08/02/19 23:09 08/02/19 23:08/02/19 23:08/02/19 23:09 - Notes Notes: GENERAL: Alert, interacts well. No acute distress. HEAD: Normocephalic, atraumatic. EYES: Pupils equal, round, and reactive to light. Extraocular movements intact. ENT: Oral mucosa moist, tongue midline. Oropharynx unremarkable. Airway patent. NECK: Full range of motion. Supple. Trachea midline. No lymphadenopathy. LUNGS: Clear to auscultation bilaterally, no wheezes, rales, or rhonchi. No respiratory distress. Non-tender chest wall. HEART: Regular rate and rhythm. No murmur ABDOMEN: Soft, non-tender. Non-distended. Bowel sounds present in all 4 quadran ts. GENITOURINARY: Deferred EXTREMITIES: Moves all 4 extremities spontaneously. No edema, normal radial and dorsalis pedis pulses bilaterally. No cyanosis. BACK: no cervical, thoracic, lumbar midline tenderness. No saddle anesthesia, normal distal neurovascular exam. Moves all extremities in full range of motion. NEUROLOGICAL: Alert and oriented x3. Normal speech. Cranial nerves II through XII grossly intact. Strength 5/5 in all extremities. PSYCH: Normal affect, normal mood. SKIN: Warm, dry, normal turgor. No rashes or lesions noted. Course - Re-evaluation Re-evalutation: Patient is alert, interactive, well-appearing. She is not sluggish, her pupils are unremarkable, her vital signs are unremarkable, her physical exam is completely unremarkable. EKG sinus rhythm without concerning findings, CBC, chemistry, urinalysis unremarkable, negative, I did discuss urine drug screen and patient did want this to make sure she did not ingest anything else, this only showed marijuana. Patient was given IV fluids, on reevaluation patient has eaten crackers, states she feels much better, has no current complaints, states she is ready to go home. Discussed dangers of recreational drugs, discussed memory care follow-up and return precautions. Patient states appreciation and agreement. Patient requests a note that states she can go back to work tomorrow. Stable at time of discharge. - Vital Signs Vital signs: Temp Pulse Resp BP Pulse Ox 97.4 F 80 18 118/82 100 08/02/19 23:08/02/19 23:08/02/19 23:08/02/19 23:09 08/02/19 23:09 - Laboratory Result Diagrams: 08/03/19 00:09 08/03/19 00:09 Laboratory results interpreted by me: 08/03/19 08/03/19 00:09 00:09 Seg Neutrophils % 78.6 H Sodium 136.6 L Glucose 127 H Discharge - Discharge Clinical Impression: Lightheaded, Nausea, Weakness Condition: Stable Disposition: HOME, SELF-CARE Additional Instructions: You have been treated here with IV fluids for your symptoms tonight. Your work- up does not show any concerning findings, your evaluation is reassuring. Avoid any recreational/illegal substances. These can have a variety of negative and sometimes very dangerous side effects. Follow-up with primary care for additional management. Return if you worsen including passing out, developing fever, chest pain, vomiting, or any other concerning symptoms. Forms: Return to Work Referrals: RAJI WOODS PA-C [Primary Care Provider] - Follow up as needed
[2019-08-03 00:17] LABS: ABSOLUTE BASOPHILS # (AUTO) 0.1 10^3/uL (0.0-0.2); ABSOLUTE EOSINOPHILS # (AUTO) 0.1 10^3/uL (0.0-0.6); ABSOLUTE LYMPHOCYTES (AUTO) 1.3 10^3/uL (0.5-4.7); ABSOLUTE MONOCYTES (AUTO) 0.5 10^3/uL (0.1-1.4); BASOPHILS % (AUTO) 0.6 % (0-2); EOSINOPHILS % (AUTO) 0.8 % (0-6); HEMATOCRIT 38.6 % (36.0-47.0); HEMOGLOBIN 12.8 g/dL (12.0-15.5); LYMPHOCYTES % (AUTO) 14.6 % (13-45); MEAN CORPUSCULAR HEMOGLOBIN 28.6 pg (27.0-33.4); MEAN CORPUSCULAR HGB CONC 33.3 g/dL (32.0-36.0); MEAN CORPUSCULAR VOLUME 86 fl (80-97); MONOCYTES % (AUTO) 5.4 % (3-13); PLATELET COUNT 233 10^3/uL (150-450); RED BLOOD COUNT 4.48 10^6/uL (3.72-5.28); RED CELL DISTRIBUTION WIDTH 13.7 % (11.5-14.0); SEGMENTED NEUTROPHILS % (AUTO) 78.6 % (42-78); TOTAL CELLS COUNTED % (AUTO) 100 %; WHITE BLOOD COUNT 8.9 10^3/uL (4.0-10.5)
[2019-08-03 00:34] LABS: ALKALINE PHOSPHATASE 68 U/L (38-126); ANION GAP 8 (5-19); ASPARTATE AMINO TRANSFERASE 24 U/L (14-36); BILIRUBIN,DIRECT 0.2 mg/dL (0.0-0.4); BILIRUBIN,TOTAL 0.3 mg/dL (0.2-1.3); BLOOD UREA NITROGEN 12 mg/dL (7-20); CALCIUM 8.9 mg/dL (8.4-10.2); CARBON DIOXIDE 27 mmol/L (22-30); CHLORIDE 102 mmol/L (98-107); GLUCOSE 127 mg/dL (75-110); POTASSIUM 3.6 mmol/L (3.6-5.0); TOTAL PROTEIN 7.5 g/dL (6.3-8.2)
[2019-08-03 00:35] LABS: ALCOHOL < 10 mg/dL (NONE DETECTED)
[2019-08-03 01:49] LABS: APPEARANCE,URINE SLIGHTLY-CLOUDY; BILIRUBIN,URINE NEGATIVE (NEGATIVE); COLOR,URINE YELLOW; GLUCOSE, URINE NEGATIVE (NEGATIVE); KETONES,URINE NEGATIVE (NEGATIVE); LEUKOCYTE ESTERASE,URINE NEGATIVE (NEGATIVE); NITRITE,URINE NEGATIVE (NEGATIVE); PROTEIN,URINE NEGATIVE (NEGATIVE); URINE SPECIFIC GRAVITY 1.013; UROBILINOGEN,URINE NEGATIVE mg/dL (<2.0)
[2019-08-03 02:10] LABS: URINE AMPHETAMINES SCREEN NEGATIVE; URINE BARBITURATES SCREEN NEGATIVE; URINE BENZODIAZEPINES SCREEN NEGATIVE; URINE COCAINE SCREEN NEGATIVE; URINE METHADONE SCREEN NEGATIVE; URINE PHENCYCLIDINE SCREEN NEGATIVE
[2019-08-03 02:12] LABS: URINE MARIJUANA (THC) SCREEN UNCONFIRMED POSITIVE
[2019-08-03 02:37] VITALS: BP 120/78
--- NOTE | 2019-08-03 09:29 | EKG REPORT ---
SEVERITY:- NORMAL ECG - SINUS RHYTHM : Confirmed by: Randy Easley 03-Aug-2019 09:28:45
== END 2019-08-03 02:37 | disposition home or self-care (01) ==
LOC: ER 22:49
DX: R42 Dizziness and giddiness (principal); R11.0 Nausea; R53.1 Weakness; F12.90 Cannabis use, unspecified, uncomplicated; Z88.8 Allergy status to other drugs, medicaments and biological substances; Z79.899 Other long term (current) drug therapy; F17.200 Nicotine dependence, unspecified, uncomplicated
CPT/HCPCS: 93005; 99284; 96360; 36415; 80307 ×2; 85025; 81025; 80053; 81001; 93010; J7030

== ENCOUNTER 2019-12-27 00:56 | Emergency (ER) | payer BC ==
[2019-12-27] MEDS ORDERED: IBUPROFEN 400 MG TABLET PO ONE (01:52)
--- NOTE | 2019-12-27 01:54 | ER Document Report ---
ED Medical Screen (RME) - General Chief Complaint: Abdominal Pain Stated Complaint: ABDOMINAL PAIN Time Seen by Provider: 12/27/19 01:51 Primary Care Provider: RAJI WOODS PA-C [Primary Care Provider] - Follow up as needed Notes: 24-year-old female with chief complaint of sudden onset. Tonight, pain is worse on the left. She denies nausea vomiting, fever chills, dysuria, vaginal bleeding or discharge. She states she does not think she is , she does not think she has been exposed to an STD. Reports normal bowel movements. Denies any surgeries or past medical history. TRAVEL OUTSIDE OF THE [place] IN LAST 30 DAYS: No - Related Data Allergies/Adverse Reactions: epinephrine [Epinephrine] Adverse Reaction (Verified 12/27/19 01:52) Syncope Past Medical History Renal/ Medical History: Denies: Hx Peritoneal Dialysis - Immunizations Immunizations up to date: Yes Hx Diphtheria, Pertussis, Tetanus Vaccination: Yes - unknown Physical Exam - Vital signs Vitals: Temp Pulse Resp BP Pulse Ox 98.1 F 83 18 136/86 H 100 12/27/19 01:09 12/27/19 01:09 12/27/19 01:09 12/27/19 01:09 12/27/19 01:09 - Abdominal Tenderness: Tender - Tender in the lower abdomen bilaterally, worse on the left lower pelvic area. Remaining abdomen benign Course - Re-evaluation Re-evalutation: 12/27/19 01:54 I have greeted and performed a rapid initial assessment of this patient. A comprehensive ED assessment and evaluation of the patient, analysis of test results and completion of the medical decision making process will be conducted by additional ED providers. - Vital Signs Vital signs: Temp Pulse Resp BP Pulse Ox 98.1 F 83 18 136/86 H 100 12/27/19 01:09 12/27/19 01:09 12/27/19 01:09 12/27/19 01:09 12/27/19 01:09 Doctor's Discharge - Discharge Referrals: RAJI WOODS PA-C [Primary Care Provider] - Follow up as needed
[2019-12-27 02:38] LABS: APPEARANCE,URINE CLEAR; BILIRUBIN,URINE NEGATIVE (NEGATIVE); COLOR,URINE YELLOW; GLUCOSE, URINE NEGATIVE (NEGATIVE); KETONES,URINE NEGATIVE (NEGATIVE); LEUKOCYTE ESTERASE,URINE NEGATIVE (NEGATIVE); NITRITE,URINE NEGATIVE (NEGATIVE); PROTEIN,URINE NEGATIVE (NEGATIVE); URINE SPECIFIC GRAVITY 1.021
[2019-12-27 02:51] LABS: ABSOLUTE BASOPHILS # (AUTO) 0.1 10^3/uL (0.0-0.2); ABSOLUTE EOSINOPHILS # (AUTO) 0.2 10^3/uL (0.0-0.6); ABSOLUTE LYMPHOCYTES (AUTO) 2.4 10^3/uL (0.5-4.7); ABSOLUTE MONOCYTES (AUTO) 0.5 10^3/uL (0.1-1.4); ABSOLUTE NEUT (AUTO) 2.3 10^3/uL (1.7-8.2); BASOPHILS % (AUTO) 1.1 % (0-2); EOSINOPHILS % (AUTO) 3.8 % (0-6); HEMATOCRIT 35.8 % (36.0-47.0); HEMOGLOBIN 11.8 g/dL (12.0-15.5); LYMPHOCYTES % (AUTO) 43.8 % (13-45); MEAN CORPUSCULAR HEMOGLOBIN 27.9 pg (27.0-33.4); MEAN CORPUSCULAR HGB CONC 32.9 g/dL (32.0-36.0); MEAN CORPUSCULAR VOLUME 85 fl (80-97); MONOCYTES % (AUTO) 8.6 % (3-13); PLATELET COUNT 181 10^3/uL (150-450); RED BLOOD COUNT 4.22 10^6/uL (3.72-5.28); RED CELL DISTRIBUTION WIDTH 14.1 % (11.5-14.0); SEGMENTED NEUTROPHILS % (AUTO) 42.7 % (42-78); TOTAL CELLS COUNTED % (AUTO) 100 %; WHITE BLOOD COUNT 5.4 10^3/uL (4.0-10.5)
[2019-12-27 02:52] LABS: ALKALINE PHOSPHATASE 60 U/L (38-126); ANION GAP 5 (5-19); ASPARTATE AMINO TRANSFERASE 23 U/L (14-36); BILIRUBIN,DIRECT 0.2 mg/dL (0.0-0.4); BILIRUBIN,TOTAL 0.4 mg/dL (0.2-1.3); BLOOD UREA NITROGEN 11 mg/dL (7-20); CARBON DIOXIDE 25 mmol/L (22-30); CHLORIDE 107 mmol/L (98-107); GLUCOSE 126 mg/dL (75-110); POTASSIUM 3.9 mmol/L (3.6-5.0); TOTAL PROTEIN 6.9 g/dL (6.3-8.2)
--- NOTE | 2019-12-27 03:10 | RADIOLOGY REPORT (SQ) ---
EXAM DESCRIPTION: US PELVIS TRANSVAGINAL COMPLETED DATE/TME: 12/27/2019 01:52 CLINICAL HISTORY: 24 years Female, sharp pelvic pain, worse on left Comparison: None. Technique: Transvaginal. LIMITATIONS: None. FINDINGS: 9-cm uterus, 0.7-cm endometrial stripe thickness, 3.3-cm right ovary, and 3.3-cm left ovary appear normal in size, shape, echotexture, and vascularity. No free fluid. IMPRESSION: Normal pelvic sonogram.
[2019-12-27 04:03] LABS: CHLAM PCR NOT DETECTED (NOT DETECT)
--- NOTE | 2019-12-27 05:08 | ER Document Report ---
ED General - General Chief Complaint: Abdominal Pain Stated Complaint: ABDOMINAL PAIN Time Seen by Provider: 12/27/19 01:51 Primary Care Provider: RAJI WOODS PA-C [Primary Care Provider] - Follow up as needed TRAVEL OUTSIDE OF THE [place] IN LAST 30 DAYS: No - HPI Notes: Patient is a 24-year-old female who presents to the emergency department for evaluation of pelvic pain. It started today during sexual activity. She states that she was being digitally penetrated when she started having pelvic pain. She states right now she is really not having pain unless you palpate the area. She states she has had pain in the past with sexual intercourse. She was actually seen by her primary care provider for this in the past. She had a pelvic exam. She was diagnosed with a UTI. Her pain improved somewhat after treatment with antibiotic, but she states that she has had frequent pain during sexual interactions. She states that seems somewhat worse today, and was with less activity, so she became concerned. She had not yet had a transvaginal ultrasound, which had been suggested by her primary care provider, so she presented to the ED for further evaluation. She said no fevers or chills. No nausea or vomiting. She is eating and drinking normally. She denies any vaginal discharge. No abnormal vaginal bleeding. She had a normal bowel movement yesterday. - Related Data Allergies/Adverse Reactions: epinephrine [Epinephrine] Adverse Reaction (Verified 12/27/19 01:52) Syncope Home Medications: Sprintec Past Medical History - General Information source: Patient - Social History Smoking Status: Former Smoker Frequency of alcohol use: None Drug Abuse: None Family History: Reviewed & Not Pertinent, DM, Hypertension Renal/ Medical History: Denies: Hx Peritoneal Dialysis - Immunizations Immunizations up to date: Yes Hx Diphtheria, Pertussis, Tetanus Vaccination: Yes - unknown Hx Pneumococcal Vaccination: 05/03/00 Review of Systems - Review of Systems Constitutional: No symptoms reported EENT: No symptoms reported Cardiovascular: No symptoms reported Respiratory: No symptoms reported Gastrointestinal: See HPI Genitourinary: No symptoms reported Female Genitourinary: See HPI Musculoskeletal: No symptoms reported Skin: No symptoms reported Neurological/Psychological: No symptoms reported Physical Exam - Vital signs Vitals: Temp Pulse Resp BP Pulse Ox 98.1 F 83 18 136/86 H 100 12/27/19 01:09 12/27/19 01:09 12/27/19 01:09 12/27/19 01:09 12/27/19 01:09 - Notes Notes: Vital signs reviewed, please refer to chart. Head is normocephalic, atraumatic. Pupils equal round, reactive to light. Neck is supple without meningismus. Heart is regular rate and rhythm. Lungs are clear to auscultation bilaterally. Abdomen is soft, moderately tender in the lower pelvis without rebound or guarding, normoactive bowel sounds throughout. Extremities without cyanosis, clubbing. Posterior calves are nontender. Peripheral pulses are equal. Skin is warm and dry. Patient is awake, alert, neurological exam is nonfocal. Course - Re-evaluation Re-evalutation: 12/27/19 05:06 Patient presents to the emergency department for evaluation of pelvic pain. She was initially seen through triage. She had laboratory investigations as ordered, as well as transvaginal ultrasound. She had urine for gonorrhea and chlamydia. Her work-up here was essentially unremarkable. The patient has had similar pain in the past. She has already had a pelvic exam for this. She had a normal transvaginal ultrasound. She really is not having any pain at this time. I will encourage her to follow-up with her primary care provider. She does relate an abnormal Pap smear in the past, she is supposed to have this repeated. I explained to her that she should follow-up with primary care, Tylenol or ibuprofen as needed for pain, return to the ED with worsening or new concerning symptoms of any sort. - Vital Signs Vital signs: Temp Pulse Resp BP Pulse Ox 98.1 F 83 18 136/86 H 100 12/27/19 01:09 12/27/19 01:09 12/27/19 01:09 12/27/19 01:09 12/27/19 01:09 - Laboratory Result Diagrams: 12/27/19 02:16 12/27/19 02:16 Laboratory results interpreted by me: 12/27/19 12/27/19 12/27/19 02:16 02:16 02:16 Hgb 11.8 L Hct 35.8 L RDW 14.1 H Glucose 126 H Urine Urobilinogen 2.0 H - Diagnostic Test Radiology reviewed: Reports reviewed Radiology results interpreted by me: 12/27/19 05:07 Transvaginal US 12/27/19 01:52 IMPRESSION: Normal pelvic sonogram. Discharge - Discharge Clinical Impression: Pelvic pain Condition: Stable Disposition: HOME, SELF-CARE Instructions: Pelvic Pain ([facility]) Additional Instructions: Follow-up with primary care this week. Tylenol or ibuprofen as needed for pain. Return to the emergency department with worsening or new concerning symptoms of any sort. Referrals: RAJI WOODS PA-C [Primary Care Provider] - Follow up as needed
[2019-12-27 05:09] VITALS: BP 120/85
== END 2019-12-27 05:12 | disposition home or self-care (01) ==
LOC: ER 00:56
DX: R10.2 Pelvic and perineal pain (principal); N94.10 Unspecified dyspareunia; Z87.440 Personal history of urinary (tract) infections; Z79.3 Long term (current) use of hormonal contraceptives; Z87.891 Personal history of nicotine dependence
CPT/HCPCS: 99284; 36415; 85025; 81025; 80053; 81001; 87491; 87591; 76830; 93976; J3490